=== PATIENT | male | born 1960 | race Caucasian/White ===

== ENCOUNTER 2024-12-28 06:22 | Day surgery (SDC) | payer MEDICARE ==
[2024-12-22 09:45] VITALS: BMI 21.3
[2024-12-28] MEDS ORDERED: PROPOFOL 40 ML ONE (08:06)
[2024-12-28] MEDS ORDERED: Lidocaine 1% PF 5 ML VIAL ONE (08:06)
== END 2024-12-28 10:17 | disposition home or self-care (01) ==
LOC: CSHSDC 06:22
PROVIDERS: ATTEND Surgery
PROC: 0DBP8ZX Excision of Rectum, Via Natural or Artificial Opening Endoscopic, Diagnostic (ICD-10-PCS; principal; 2024-12-28)
DX: Z12.11 Encounter for screening for malignant neoplasm of colon (principal); K62.1 Rectal polyp; E03.9 Hypothyroidism, unspecified; E78.5 Hyperlipidemia, unspecified; I10 Essential (primary) hypertension; Z86.0101 Personal history of adenomatous and serrated colon polyps; Z79.899 Other long term (current) drug therapy
CPT/HCPCS: 45380; J2704; 88305